=== PATIENT | female | born 1940 | race Caucasian/White ===

== ENCOUNTER 2022-02-18 10:39 | Outpatient (CLI) | payer MEDICARE, SELFPAY ==
[2022-02-18 11:34] LABS: Alanine Aminotransferase 21 U/L (6-35); Albumin Level 4.4 g/dL (3.5-5.1); Alkaline Phosphatase 54 U/L (38-126); Amylase 90 U/L (30-110); Aspartate Amino Transferase 32 U/L (14-36); Bilirubin,Total 0.4 mg/dL (0.2-1.3); Lipase 63 U/L (23-300)
== END 2022-02-18 10:40 | disposition home or self-care (01) ==
PROVIDERS: PCP Emergency Medicine; Visit Provider Surgery
DX: K80.10 Calculus of gallbladder with chronic cholecystitis without obstruction (principal); Z01.818 Encounter for other preprocedural examination
CPT/HCPCS: 36415; 80076; 82150; 83690; 86850; 86900; 86901

== ENCOUNTER 2022-02-21 00:17 | Day surgery (SDC) | payer MEDICARE, SELFPAY ==
--- NOTE | 2022-02-14 10:21 | PC.NURSE ---
Report to the Outpatient Waiting Room, entrance under the green pavilion located off [facility], at time 0700 on date __02/21/22 . OR Time: __0900 . - You and your visitor will be asked a series of questions to screen for COVID 19 for your protection. - Only one visitor is allowed at this time. - The patient visitor is requested to leave or wait in car when not with patient. - A mask is required within the hospital. Patients may have clear liquids (water, carbonated beverages, clear teas, apple juice) until 3 hours prior to surgery with a maximum of 20 ounces. - No food from midnight until time of surgery - Infants may have breast milk until 4 hours before surgery, infant formula 6 hours prior to surgery. - Children will be allowed to drink immediately following surgery. If applicable, please bring a bottle or sippy cup to assist with drinking. Juice, water, soda, and popsicles are readily available. For infants on formula, please bring formula the day of surgery. Pacifiers are allowed. Take the following medications with a SIP of water the morning of surgery: ___LEVOTHYROXINE,EYE DROP Medications to discontinue per physician ____ALL VITAMINS AND SUPPLEMENTS 3 DAYS PRE OP Date to take last dose___02/17/22 Please no make-up, nail tuvaluan, hairspray, perfume, deodorant, or body powder the day of surgery. No jewelry (including any body piercings) or valuables the day of surgery, leave them at home. Please take a shower or bath the night before, or the morning of, surgery with an antibacterial soap. Wear comfortable, loose fitting clothing. Children are encouraged to wear pajamas. - Jewelry must be removed prior to entering the operating room. Rings and piercings that are not removed may be cut off. - The hospital will not accept responsibility for valuables. - Please leave all valuables, including medications, at home the day of surgery. HIBICLENS SHOWER MORNING OF SURGERY If you are going home after surgery, a licensed m48/m60 tank driver must drive you home. - NO public transportation without another adult. - We recommend that an adult stay with you for 24 hours following discharge. - We also recommend that you do not drive, make important decision, drink alcoholic beverages, or take any drugs that were not prescribed by your health care provider for at least 24 hours after your discharge time. For Pediatric surgeries, we recommend two adults accompany the child home (only one inside the building at this time). Follow any additional instructions given to you from your surgeon. If you or anyone in your household have experienced Covid symptoms in the past week, please notify your surgeon or the nurse liaison at the phone number below for possible testing. Telephone instructions given to __PATIENT and asked if any additional questions and then verbalized understanding. Patient advised to call surgeon office or pre surgery nurse liaison [phone] if any additional questions.
[2022-02-14 10:32] VITALS: BMI 31.0
--- NOTE | 2022-02-20 11:52 | WPDANESEPPF ---
Anes - Initial Pre Proc Eval Procedure: Operation Date: 02/21/22 09:00 Proposed Procedures p Laparoscopic Cholecystectomy - Clarice Garcia MD Date/Time: 02/20/22 11:52 Surgeon: Clarice Garcia MD Pre Op Diagnosis: chronic cholecystitis with stones Patient Data Age: 82 Gender: F Height: 1.52 m Weight: 72.15 kg Allergies Allergy/AdvReac Type Severity Reaction Status Date / Time Sulfa (Sulfonamide Allergy Intermediate RASH Verified 02/21/22 07:17 Antibiotics) Home Medications Medication Instructions Recorded Confirmed Type doxycycline hyclate 100 mg capsule 100 mg PO DAILY 01/29/22 02/21/22 History fenofibrate 160 mg tablet 160 mg PO DAILY 01/29/22 02/21/22 History hydrocodone 5 mg-acetaminophen 325 1 tablet PO Q8H PRN Pain 01/29/22 02/21/22 History mg tablet levothyroxine 75 mcg capsule 75 mcg PO DAILY 01/29/22 02/21/22 History omeprazole 40 mg capsule,delayed 40 mg PO DAILY 01/29/22 02/21/22 History release rosuvastatin 20 mg tablet 20 mg PO DAILY 01/29/22 02/21/22 History calcium carbonate 600 mg-vitamin 1 tablet PO DAILY 02/14/22 02/21/22 History D3 5 mcg (200 unit) tablet cholecalciferol (vitamin D3) 50 50 mcg PO DAILY 02/14/22 02/21/22 History mcg (2,000 unit) capsule cyanocobalamin (vitamin B-12) 500 500 mcg PO DAILY 02/14/22 02/21/22 History mcg tablet multivit with minerals-iron 18 1 tablet PO DAILY 02/14/22 02/21/22 History mg-folic ac 400 mcg-vit K 25 mcg tablet (Adults Multivitamin) multivitamin with minerals 1 tablet PO DAILY 02/14/22 02/21/22 History (Hair,Skin and Nails tablet) timolol maleate 0.25 % eye drops 1 drp EACH EYE BID 02/14/22 02/21/22 History ECG: sr, 1st degree avb Patient hx anesthesia problems: none Family hx anesthesia problems: none Results Review: All pre-operative results and documents have been reviewed as part of the pre-operative evaluation. [facility] Past Medical History Medical History (Updated 02/20/22 @ 12:02 by Loco Rotmhan MD) Anxiety BMI 31.0-31.9,adult GERD (gastroesophageal reflux disease) Glaucoma High cholesterol Hypothyroidism Surgical History Surgical History H/O foot surgery RIGHT FOOT SURGERY H/O tubal ligation History of ankle surgery LEFT ANKLE Family History Family History Other Cerebrovascular accident Diabetes mellitus Heart disease Hodgkins lymphoma Hypertension Lung cancer Social History Social History Smoking packs per day: 1 Smoking cigarettes per day: 20.0 Years smoked: 20 Smoking pack-years: 20.00 Smoking status: Former smoker Tobacco type: cigarettes Smoking end date: 09/14/84 Alcohol intake: never Substance use: never Substance use type: does not use Living arrangements: alone Gender identity (if verbalized by the patient): Female Spiritual care concerns: No Anes - Eval Final PreProcedure Day of Procedure 02/20/22 11:52 Patient weight: obese Heart: regular rate and rhythm Lungs: clear to auscultation and normal air movement Airway: Mallampati scale class II Neurological: alert and oriented Last oral intake: >/= 8 hours ASA classification: II Emergent: no Anesthetic plan: proceed Anesthesia type and monitoring: general ETT Results Review: All pre-operative results and documents have been reviewed as part of the pre-operative evaluation. Informed Consent: The patient's anesthetic plan and its attendant risks and benefits were discussed with the patient/family/POA. Questions were solicited and answers provided to the satisfaction of the patient/family/POA.
[2022-02-21] VITALS (7 sets, daily range): BP systolic 129–163; BP diastolic 57–83; PULSE 57–71; RESP 16–19; TEMP 36.2; O2SAT 92–100
[2022-02-21] MEDS: LACTATED RINGERS 1,000 ML 30 ML IV CONT ×2 (08:02→11:24)
[2022-02-21] MEDS: ACETAMINOPHEN 500 MG TABLET 1000 MG PO (08:02)
[2022-02-21] MEDS: KETOROLAC 15 MG/ML VIAL (*BKC) IV PUSH (08:35)
--- NOTE | 2022-02-21 09:39 | WPDHPUPDATE1 ---
History and Physical Update Update Date/Time: 02/21/22 09:39 History and Physical has been reviewed, including an updated exam of the patient. There are NO changes in the patient's condition. Risks, benefits, and alternatives have been discussed and questions answered. Patient agrees to proceed with procedure.
[2022-02-21] MEDS: ceFAZolin 2 GM/D5W 50 ML 2 GM/50 ML BAG IVPB (09:42)
--- NOTE | 2022-02-21 10:39 | W.PM.PROC2 ---
Procedure Note - Detailed Date of Procedure 02/21/22 Pre-op Diagnosis chronic cholecystitis with stones Post-op Diagnosis Same Procedure Performed Laparoscopic cholecystectomy Surgeon Clarice Garcia MD Anesthesia General Indications 82 y/o F c chronic cholecytitis, cholelithiasis Findings chronic cholecystitis, cholelithiasis Description of Procedure The patient was taken to the operating room placed in the supine position. After adequate induction of general anesthesia, the patient was prepped and draped in normal sterile fashion. A time-out was then performed to verify the patient's identity as well as the procedure being performed. I then made a 5 mm incision in the infraumbilical region. Through this, a Veress needle was placed into the peritoneal cavity and CO2 gas was then insufflated. After adequate pneumoperitoneum was achieved, the Veress needle was removed and a 5 mm optiview trocar was placed through this incision under direct visualization. I then placed the laparoscope through this trocar site and under direct visualization placed a further 12 mm subxiphoid port as well as 2 additional 5 mm ports in the right upper abdomen. The gallbladder was then identified and was noted to be moderately inflamed, distended, and full of gallstones. I was able to place a grasper at the dome of the gallbladder and this was retracted anterior and cephalad up over the liver. A 2nd retractor was then placed at the infundibulum and retracted laterally, this allowed visualization of the triangle of Calot. I then was able to visualize the cystic duct in its entirety from its proximal insertion into the gallbladder, to its distal junction with the common hepatic/common bile duct junction. At this point, I carefully skeletonized the proximal cystic duct with the [place] dissector. I then clipped and transected the proximal cystic duct. Next I visualized the cystic artery. Again the artery was skeletonized, clipped, and transected. I then used the Bovie cautery to take down the peritoneal attachments of the gallbladder off the liver bed. This was somewhat difficult given the amount of inflammation in the posterior space. Once the gallbladder specimen was completely detached, an endo-pouch was placed through the 12 mm port site. I then placed the gallbladder specimen into the Endo pouch and removed the endo-pouch from the 12 mm port site. The specimen will now be sent to pathology for further review. I then copiously irrigated the right upper quadrant. Some mild oozing was noted in the liver bed and this was controlled with the bovie cautery. Hemostasis was noted in the liver bed, the clips were noted to be in good position on both the cystic duct stump and the cystic artery stump. No other pathology was noted in the right upper quadrant. I then moved the laparoscope to the subxiphoid port. No iatrogenic injury or other pathology was noted in the lower abdomen. I then closed the 12 mm trocar site under direct visualization using the Tre cone and 0 Vicryl suture. At this point, the abdomen was desufflated and all ports removed. All port sites were then closed with 4.O Monocryl subcuticular sutures. Dermabond was placed on each incision. The patient tolerated the procedure well, was extubated in the operating room postoperative and will be transferred to the recovery room in stable condition Estimated Blood Loss 10 Drains No Packing No Pathology Yes Complications No immediate complications Condition Stable Disposition PACU [facility] Billing Surgery - Charge Forward: Surgery Billing
--- NOTE | 2022-02-21 11:20 | SUR.PHASEI ---
simple mask removed at 1120
[2022-02-21] MEDS: oxyCODONE HCL (*CRX) 5 MG TAB IR PO (12:19)
== END 2022-02-21 12:35 | disposition home or self-care (01) ==
PROVIDERS: PCP Emergency Medicine; Visit Provider Surgery
PROC: 0FT44ZZ Resection of Gallbladder, Percutaneous Endoscopic Approach (ICD-10-PCS; CPT 47562; principal; 2022-02-21 09:00)
DX: K80.10 Calculus of gallbladder with chronic cholecystitis without obstruction (principal); K21.9 Gastro-esophageal reflux disease without esophagitis; E78.00 Pure hypercholesterolemia, unspecified; Z87.891 Personal history of nicotine dependence; E03.9 Hypothyroidism, unspecified; E66.9 Obesity, unspecified; Z68.31 Body mass index [BMI] 31.0-31.9, adult; R11.0 Nausea; R19.7 Diarrhea, unspecified; R10.9 Unspecified abdominal pain; R14.0 Abdominal distension (gaseous); K59.00 Constipation, unspecified; F41.9 Anxiety disorder, unspecified
CPT/HCPCS: 47562; 88304; A9270; J0330; J0690; J1100; J1885; J2405; J2704; J3010; J7030; J7120